=== PATIENT | male | born 1970 | race Caucasian/White ===

== ENCOUNTER 2019-02-10 01:27 | Outpatient (CLI) | payer BC, SELFPAY ==
--- NOTE | 2019-02-10 10:33 | DI.MRI_ITS ---
EXAM: MR CERVICAL SPINE WO CLINICAL HISTORY: CERVICAL RADICULOPATHY, 2 MO PROGRESSIVE NECK AND ARM PAIN W/ SIGNS OF CERVICAL IM PINGEMENT TECHNIQUE: Multiplanar multisequence MRI was performed. The exam is somewhat limited by patient mot ion. COMPARISON: No exams were available for comparison FINDINGS: The C2-3 through C4-5 levels are unremarkable. At C6, there is moderate loss of height. There are end plate osteophytes projecting circumferentially, which is slightly eccentric toward the left. There is effacement of the CSF space and a question of neural foraminal encroachment. At C 6-7, there are sma ll endplate osteophytes. There is a large, broad-based disc herniation which is eccentric toward the right and appears to enter the right neural foramen. There is impingement on the anterior aspect of t he cervical cord. The C7-T1 and T1-2 levels are unremarkable. The cord signal and marrow signal appea r normal. IMPRESSION: Large right-sided disc herniation at C6 appears to impinge on the cord and enters the neural foramen. Mild central canal stenosis is seen at C 5-6 secondary to disc osteophytes.
== END 2019-02-10 01:47 ==
PROVIDERS: PCP Family Medicine; Visit Provider Family Medicine
DX: M54.2 Cervicalgia (principal); M79.603 Pain in arm, unspecified; M50.123 Cervical disc disorder at C6-C7 level with radiculopathy; M50.223 Other cervical disc displacement at C6-C7 level
CPT/HCPCS: 72141

== ENCOUNTER 2019-04-29 07:44 | Outpatient (CLI) | payer BC, SELFPAY ==
[2019-04-29 07:51] VITALS: BP 104/70; PULSE 62; RESP 14; TEMP 35.1; O2SAT 96
--- NOTE | 2019-04-29 07:57 | PDOC.PAIN ---
Pain Clinic Procedure Note Procedure Note Procedure Note: Cervical Epidural Steroid Injection MILTON CHU has been referred to the [facility] for interlaminar cervical epidural steroid injection. Pre-operative diagnosis: cervical radiculopathy Post-operative diagnosis: same as above Patient was interviewed and the medical record reviewed. There were no medical, pharmacologic, radiographic or other structural contraindications to attempting fluoroscopically guided epidural steroid injection. Risks and expected side effects as well as potential benefit of the procedure were reviewed and voiced concerns addressed. The printed consent form was signed and witnessed. Standard time-out procedure was performed. The patient was placed in the prone position on the fluoroscopy table and automated blood pressure cuff and pulse oximeter applied. The skin entry point for entering the epidural space by a midline C7-T1 interlaminar approach was identified under fluoroscopy and marked. Following thorough Chlorhexadine preparation of the skin and draping and 1% lidocaine infiltration of the skin entry point and subcutaneous tissues, an 18 gauge Tuohy needle was placed under fluoroscopic guidance and with loss of resistance technique into the epidural space. Upon needle placement and loss of resistance there were no paresthesiae or return of blood or CSF through the needle. 1ml of Omnipaque 240 were injected with clear epidural spread in the A/P, oblique views. 15mg of preservative-free Dexamethasone with 1ml sterile normal saline were injected through the needle with no unusual discomfort expressed. 1cc of preservative free normal saline was followed to flush the steroid out of the needle. The needle was removed without difficulty. A bandage was placed. Vital signs were stable throughout the procedure and were as recorded in the docflowsheet by the nursing staff. If given, dosages of intravenous drugs for anxiolysis and analgesia were documented in MAR. Follow up plans and appointments were discussed. Post procedure instruction was given as documented in nursing documentation and having met discharge criteria and was discharged from the [facility]. COMMENTS: patient received 1mg of IV versed. I personally performed the entire procedure. Aspen Keyes MD Pain Management CC: Ramiro Francisco
[2019-04-29] MEDS: Lactated Ringers 1,000 ML 80 ML IV (08:06)
[2019-04-29] MEDS: Midazolam 2 MG/2 ML VIAL IVP (08:11)
[2019-04-29 08:20] VITALS: BP 107/82; PULSE 52; RESP 15; O2SAT 99
[2019-04-29] MEDS: Omnipaque 240 MG/ML 50 ML BTL IJ (08:20)
[2019-04-29] MEDS: Dexamethasone Sod. Phos./Pres-Free 10 MG/ML VIAL IJ (08:21)
--- NOTE | 2019-04-29 09:17 | DI.RAD_ITS ---
EXAM: XR PAIN CLINIC CERVICAL SP 2V CLINICAL HISTORY: Dx: Cervical Radiculopathy TECHNIQUE: 2D and realtime digital imaging was performed. Fluoroscopy was provided in the OR COMPARISON: No exams were available for comparison FINDINGS: C-arm fluoroscopy was utilized by Dr. Keyes during reported epidural steroid injection. Hard copy shows epidural injection just to the right of midline at what appears to be the C7-T1 level Fluoro time: 18.2 sec, fluoro dose 1.49 mGy
== END 2019-04-29 08:04 ==
PROVIDERS: PCP Family Medicine; Visit Provider Internal Medicine
DX: M54.12 Radiculopathy, cervical region (principal)
CPT/HCPCS: 62321; 72040; J2250; Q9967

== ENCOUNTER 2021-04-29 21:35 | Outpatient (REF) | payer BC, SELFPAY ==
[2021-04-29 20:08] LABS: Hemoglobin A1C 5.7 % (<5.7)
[2021-04-29 20:29] LABS: Calculated LDL 123 mg/dL (<100); Cholesterol 204 mg/dL (<200); HDL Cholesterol 49 mg/dL (40-60); Triglyceride 160 mg/dL (<150)
[2021-05-02 10:06] LABS: Hepatitis B Surface Ag Negative (Negative)
[2021-05-02 10:47] LABS: Hepatitis C Ab w Rflx HCV PCR Negative (Negative)
== END 2021-04-29 21:36 | disposition home or self-care (01) ==
LOC: NCHCN 21:35
PROVIDERS: PCP Family Medicine; Visit Provider Family Medicine
DX: Z00.00 Encounter for general adult medical examination without abnormal findings (principal)
CPT/HCPCS: 80061; 86803; 87340; 83036

== ENCOUNTER 2021-12-04 08:59 | Emergency (ER) | payer BC, SELFPAY ==
[2021-12-04 09:02] VITALS: BP 129/86; PULSE 60; RESP 16; TEMP 36.9; O2SAT 96
[2021-12-04] MEDS: Ketorolac 60 MG/2 ML VIAL IM (09:55)
--- NOTE | 2021-12-04 10:07 | W.ED.GENAD ---
Discharge Plan Disposition Patient Disposition: HOME Condition: Stable Discharge Details Clinical Impression: Cervical radicular pain Primary Care Provider: Ramiro Francisco ED Provider: Raimundo Belcher Home Meds and New Rx's Prescriptions: New cyclobenzaprine 5 mg tablet 5 mg PO QHS PRNQty: 10 0RF Continued acetaminophen 500 mg Tablet 1,000 mg PO TID PRN PRN albuterol sulfate [Proventil HFA] 90 mcg/actuation Hfa Aerosol Inhaler 2 puff INHALATION Q4H PRN Advair HFA 230-21 mcg/actuation HFA aerosol inhaler 2 puff inhalation BID omeprazole 20 mg capsule,delayed release(DR/EC) 1 cap PO QAM Label Comments: TAKE 1 CAPSULE BY MOUTH 2 TIMES DAILY ON EMPTY STOMACH 30 MINUTES BEFORE MEAL. Discharge Instructions Instructions: Neck Pain (ED) Additional Instructions: Flexeril as directed, this medication may cause drowsiness. Cool and/or warm compresses every 2 hours for 20 minutes. Gentle stretching as tolerated. You may trial [id number] Naprosyn as directed. Please watch for new or worsening symptoms and return to the ER for any concerns. I do recommend contacting both your PCP and the pain clinic tomorrow to make them aware of your ER visit and need for outpatient reevaluation. Medical Decision Making 51-year-old gentleman, [id number], presents for acute on chronic right sided cervical radiculopathy. Patient denies recent illness or trauma. Reports cervical injection 2 years ago began to wear off over the past couple of months and cannot see his pain clinic for 1 to 2 months. Clinically he appears well, nontoxic, neurologically intact. No midline point tenderness. No fever. I see no clear indication for laboratory values or advanced imaging at this time. Discussed treatment options. He is agreeable to IM Toradol and a muscle relaxer. Patient was observed in the ER for over 30 minutes after the Toradol was given, no adverse reaction. We discussed the importance of outpatient follow-up through his PCP and for pain clinic, currently recommend contacting post tomorrow to set up prompt outpatient reevaluation Standard discharge and return precautions were provided. Patient understands, is agreeable to this plan, and has no additional questions or concerns upon discharge. This documentation was generated using [employer] system, please disregard any oddities of phrase or misspellings. Medical Records Medical records reviewed: Yes I reviewed the patient's medical records. HPI General Mode of arrival: ambulatory. Date/Time Provider Initiated Documentation: 12/04/21 09:00. Limitations to Documentation: no limitations. Information obtained by: patient and family. HPI Narrative: This is a 51-year-old gentleman, past medical history that includes mild asthma, cervical radiculopathy, GERD, presenting to the ER reporting acute on chronic neck and shoulder pain. Patient states that he had a neck injection nearly 2 years ago which she responded very well to but he states over the past couple of months that is feeling as though it is wearing off. Patient denies recent illness or trauma. He has been taking aawp-aom-uuattyr Tylenol with little relief. He is unable to be seen by his pain clinic for another 2 months. Reports pain is worse with movement Related Data Home Medications Medication Instructions Recorded Confirmed acetaminophen 500 mg tablet 1,000 mg PO TID PRN PRN 02/28/19 12/04/21 albuterol sulfate 90 mcg/actuation 2 puff inhalation Q4H PRN 02/28/19 12/04/21 aerosol inhaler (Proventil HFA) fluticasone propionate 230 2 puff inhalation BID 06/16/21 12/04/21 mcg-salmeterol 21 mcg/actuation HFA inhaler (Advair HFA) cyclobenzaprine 5 mg tablet 5 mg PO QHS PRN #10 tabs 12/04/21 omeprazole 20 mg capsule,delayed 1 cap PO QAM 12/04/21 12/04/21 release Previous Rx's Medication Instructions Recorded cyclobenzaprine 5 mg tablet 5 mg PO QHS PRN #10 tabs 12/04/21 Allergies Allergy/AdvReac Type Severity Reaction Status Date / Time aspirin Allergy Severe Unverified 12/04/21 09:06 ibuprofen [From Advil] Allergy Severe Unverified 12/04/21 09:06 prednisone AdvReac Intermediate moodiness Unverified 12/04/21 09:06 General Stated Complaint: Orthopedic JOHNNA: 4 Review of Systems Constitutional Constitutional: Denies fever(s), Denies headache(s) and Denies weakness ENT Ears, Nose, Mouth, and Throat: Denies headache(s) and Reports neck pain Cardiovascular Cardiovascular: Denies chest pain and Denies dyspnea Respiratory Respiratory: Denies dyspnea Musculoskeletal Musculoskeletal: Reports neck pain, Denies numbness, Denies stiffness and Denies tingling Integumentary/Breasts Skin/Breast: Denies erythema Neurologic Neurologic: Denies headache(s), Denies numbness, Denies tingling and Denies weakness PFSH All Active Problems Cervical radicular pain (Acute) Medical History Abdominal pain Asthma Basal cell carcinoma Cervical radiculopathy Degenerative disc disease Elevated transaminase level GERD (gastroesophageal reflux disease) Hernia Right shoulder pain Surgical History H/O hernia repair History of surgical removal of lesion Social History Smoking/Tobacco Use Status: Never Smoking risk assessment performed?: Yes Alcohol Intake: former Drug use: Never Substance use type: does not use Household members: spouse and children Housing: house Number of Children: 3 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 What is your relationship status?: Panel score (0-1 are the most socially isolated patients): 1 What type of physical activity do you participate in: additional Details: active line of work Do you feel safe at home: Yes Do you feel safe in your relationship?: Yes Exam Const General: cooperative, healthy appearing, comfortable and no acute distress Orientation: alert and awake HENMT Head: normal to inspection, normocephalic and atraumatic Eyes General: appearance normal, both eyes and all related structures Conjunctivae: conjunctivae normal Neck Neck: normal visual inspection, full ROM, trachea midline, supple and tender (Right paravertebral and trapezius) Resp Effort & Inspection: normal respiratory effort and able to speak in complete sentences Skin General skin exam: no rashes or lesions noted Neuro General: patient alert, patient awake, moves all extremities and no focal motor deficits Cognition: normal cognition Speech: speech normal Gait: normal gait Motor: muscle tone normal throughout, strength 5/5 throughout, no movement abnormalities noted and no fasciculations Sensory Exam: no sensory deficits noted Extrem General: normal to inspection, full ROM and capillary refill normal Other: Diffuse mild right shoulder discomfort to palpation. Neuro, vascular, tendon intact Psych Appearance: grossly normal Mental Status: mental status grossly normal Course Vital Signs Vital signs: Vital Signs Temperature 36.9 C 12/04/21 09:02 Pulse 60 12/04/21 09:02 Respiratory Rate 16 12/04/21 09:02 Blood Pressure 129/86 12/04/21 09:02 Pulse Oximetry 96 12/04/21 09:02 Temperature 36.9 C 12/04/21 09:02 Temperature Source Temporal Artery Scan 12/04/21 09:02 Pulse 60 12/04/21 09:02 Respiratory Rate 16 12/04/21 09:02 Respiratory Effort Non-Labored 12/04/21 09:05 Blood Pressure 129/86 12/04/21 09:02 Blood Pressure Position Sitting 12/04/21 09:02 Pulse Oximetry 96 12/04/21 09:02 Oxygen Delivery Method Room Air 12/04/21 09:02 Oxygen Flow Rate 0 12/04/21 09:02 Pain Level 4 12/04/21 09:55
== END 2021-12-04 10:33 | disposition home or self-care (01) ==
PROVIDERS: Emergency Provider Physician Assistant; PCP Family Medicine
DX: M54.12 Radiculopathy, cervical region (principal)
CPT/HCPCS: 96372; 99284; J1885

== ENCOUNTER 2022-02-02 08:33 | Outpatient (CLI) | payer BC, SELFPAY ==
--- NOTE | 2022-02-02 06:00 | DI.RAD_ITS ---
Exam(s) XR PAIN CLINIC CERVICAL SP 2V EXAM: XR PAIN CLINIC CERVICAL SP 2V CLINICAL HISTORY: Dx: Cervical Radiculopathy TECHNIQUE: 2D and realtime digital imaging was performed. CONTRAST MATERIAL: Refer to procedure report. COMPARISON: No exams were available for comparison FINDINGS: Fluoroscopy was provided for Dr. Zhou during the performance of a cervical epidural steroid injectio n. Please refer to the procedure report for complete details. Ka,r=1.58 mGy IMPRESSION:
[2022-02-02 08:44] VITALS: BP 129/86; PULSE 67; RESP 20; TEMP 36.9; O2SAT 99
--- NOTE | 2022-02-02 09:17 | PDOC.PAIN ---
Date of service: 02/02/22 Time of Service: 09:20 Pain Clinic Procedure Note Procedure Note Procedure Note: Cervical Epidural Steroid Injection Chico Cartagena has been referred to the [facility] for cervical epidural steroid injection. COMMENTS: He was previously evaluated. Pre-procedure pain VAS was 6/10. Dx: Cervical radiculopathy Osiel was interviewed and the medical record reviewed. There were no medical, pharmacologic, radiographic or other structural contraindications to attempting fluoroscopically guided epidural steroid injection. Risks and expected side effects as well as potential benefit of the procedure were reviewed with Osiel , and Osiel voiced concerns addressed. The printed consent form was signed and witnessed. Standard time-out procedure was performed. The patient was placed in the prone position on the fluoroscopy table and automated blood pressure cuff and pulse oximeter applied. The skin entry point for entering the epidural space by a midline C7-T1 interlaminar approach was identified under fluoroscopy and marked. Following thorough Chlorhexadine preparation of the skin and draping and 1% lidocaine infiltration of the skin entry point and subcutaneous tissues, an 18 gauge Tuohy needle was placed under fluoroscopic guidance and with loss of resistance technique into the C7-T1 epidural space. Upon needle placement and loss of resistance there were no paresthesiae or return of blood or CSF through the needle. 1 cc of Omnipaque 240 was injected with clear epidural spread in the A/P, lateral and oblique views. 10 mg of preservative free Dexomethasone was injected with no unusual discomfort expressed by Osiel. This was flushed with 1 cc of normal saline. Osiel 's vital signs were stable throughout the procedure and were as recorded in the docflowsheet by the nursing staff. Follow up plans and appointments were discussed with the Osiel. Post procedure instruction was given as documented in nursing documentation and having met discharge criteria, Osiel was discharged from the Pain Management Center. COMMENTS: If this procedure is helpful, it can be completed up to 3 times per 12 months. Post procedure pain VAS = 1/10 Omar Zhou DO, MPH [facility]-Pain Management [facility] for [facility] CC: Ramiro Francisco
[2022-02-02] MEDS: Omnipaque 240 MG/ML 50 ML BTL IJ (09:19)
[2022-02-02] MEDS: Dexamethasone Sod. Phos./Pres-Free 10 MG/ML VIAL IJ (09:19)
[2022-02-02 09:22] VITALS: BP 127/79; PULSE 64; RESP 21; O2SAT 96
== END 2022-02-02 08:34 | disposition home or self-care (01) ==
LOC: PC 08:34
PROVIDERS: PCP Family Medicine; Visit Provider Preventive Medicine Occupational Medicine
DX: M54.12 Radiculopathy, cervical region (principal)
CPT/HCPCS: 62321; 72040; Q9967

== ENCOUNTER 2022-03-24 08:57 | Day surgery (SDC) | payer BC, SELFPAY ==
[2022-03-24 09:05] VITALS: BP 115/90; PULSE 81; RESP 16; TEMP 36.2; O2SAT 96
[2022-03-24] MEDS: Lactated Ringers 1,000 ML 80 ML IV (09:36)
--- NOTE | 2022-03-24 10:43 | W.ANESPRE ---
General Info Date of Service Date Performed: 03/24/22 Height: 6 ft Weight: 81.3 kg Body Mass Index (BMI): 24.3 Surgical Procedure: Operation Date: 03/24/22 11:50 Proposed Procedure Side Surgeon rhona García MD Meds Allergies and Home Medications Allergies Allergy/AdvReac Type Severity Reaction Status Date / Time aspirin Allergy Severe Unverified 03/24/22 09:15 ibuprofen [From Advil] Allergy Severe Unverified 03/24/22 09:15 prednisone AdvReac Intermediate moodiness Unverified 03/24/22 09:15 Home Medication Medication Instructions Recorded acetaminophen 500 mg tablet 1,000 mg PO TID PRN PRN 02/28/19 albuterol sulfate 90 mcg/actuation 2 puff inhalation Q4H PRN 02/28/19 aerosol inhaler (Proventil HFA) cyclobenzaprine 5 mg tablet 5 mg PO QHS PRN #10 tabs 12/04/21 omeprazole 20 mg capsule,delayed 1 cap PO QAM 12/04/21 release naproxen 500 mg tablet,delayed 500 mg PO BID 12/14/21 release (EC-Naproxen) bisacodyl 5 mg tablet,delayed 5 mg PO ONCE #4 tabs 03/09/22 release (Dulcolax (bisacodyl)) polyethylene glycol 3350 17 17 g PO ONCE #238 grams 03/09/22 gram/dose oral powder Current Visit Medications: Current Medications Generic Name Dose Route Start Last Admin Trade Name Freq PRN Reason Stop Dose Admin Ringer's Solution 1,000 mls @ 80 mls/hr 03/24/22 06:00 03/24/22 09:36 IV 04/22/22 23:59 80 mls/hr INFUSION MAAME Administration IV Miscellaneous Supplies 1 each 03/24/22 06:00 Iv Access IV 04/22/22 23:59 DIRECTED MAAME Sodium Chloride 0 ml 03/24/22 06:00 Normal Saline Flush 10 Ml Syr IV 04/22/22 23:59 PRN PRN Sodium Chloride 0 ml 03/24/22 06:00 Normal Saline 10 Ml Vial IJ 04/22/22 23:59 DIRECTED PRN Sterile Water 0 ml 03/24/22 06:00 Water,Injection,Sterile 10 Ml Vial IJ 04/22/22 23:59 DIRECTED PRN PFSH Active Problems Active Problems: Problem Status Onset Code Cervical radiculitis M54.12 Screening for colon cancer Z12.11 Medical History Medical History Abdominal pain Asthma Basal cell carcinoma Cervical radiculopathy Degenerative disc disease Elevated transaminase level Eosinophilic esophagitis GERD (gastroesophageal reflux disease) Hernia Right shoulder pain Surgical History Surgical History H/O hernia repair History of esophagogastroduodenoscopy (EGD) summer 2021; [facility]; tear in esophagus; prior scarring History of surgical removal of lesion Tobacco Smoking/Tobacco Use Status: Never Alcohol Alcohol Intake: former Substance Use Substance use: Never Substance use type: does not use Vital Signs and Lab Results Vital Signs Most Recent Vital Signs in EMR: Most Recent Vital Signs Temp Pulse Resp BP Pulse Ox 36.2 C L 81 16 115/90 96 03/24/22 09:05 03/24/22 09:05 03/24/22 09:05 03/24/22 09:05 03/24/22 09:05 Lab Results Blood Type / Crossmatch: No Data to Display Complete Blood Count: No Data to Display Complete Metabolic Panel: No Data to Display Liver Function Panel: No Data to Display Coagulation Panel: No Data to Display Cardiac Panel: No Data to Display Arterial Blood Gas: No Data to Display Venous Blood Gas: No Data to Display Pancreas Panel: No Data to Display Thyroid Panel: No Data to Display Infectious Disease: No Data to Display Blood Cultures: No Data to Display Toxicology Panel: No Data to Display Anesthesia Assessment and Plan Anesthesia History Personal History: No History of Anesthesia Complications Family History: No Family History of Anesthesia Complications Exercise Tolerance Exercise Tolerance: Metabolic Equivalents>4 Pertinent Negatives Pertinent Negatives: No Symptoms of GERD, No Major Cardiovascular Symptoms or Complaints and No Major Pulmonary Symptoms or Complaints Cardiac & Pulmonary Exam Cardiac Exam: Normal S1/S2 Heart Sounds Pulmonary Exam: Clear Bilateral Breath Sounds Implantable Cardiac Device Does patient have a Pacemaker or an ICD?: No Airway Exam Known Difficult Airway: No Mallampati Class: 1 Mouth Opening: Normal (> 3cm) Thyromental Distance: Greater than 3 cm Neck Range of Motion: Full ROM Neck Circumference: Normal Teeth Condition: Normal Dentition ASA Classification ASA Score: ASA 2 Emergency Case?: No NPO Status NPO Status: NPO Clears >2 hours, Solids >8 hours Anesthesia Plan Resuscitation Status: Full Code Anesthesia Technique: General Anesthesia Airway Planned: Natural Airway Monitors Used: Standard Monitors
[2022-03-24 10:45] VITALS: BMI 24.3
--- NOTE | 2022-03-24 11:10 | STOM_PTH ---
PATIENT: Chico Cartagena LOC: [facility] U#:[id number] AGE/SX: 51/M ROOM: RE03/24/[address]: Main García : 1970 BED: DIS: 03/24/2022 SPEC #: [id number] RECD: 03/24/22 12:46 STATUS: GLORY RE #: [id number] CATHERINE: 03/24/22 11:[address]: Main García DEPT: Surgical Specimen RECD BY: Gavi Ny ENTERED: 03/24/22 12:47 SP TYPE: STOMACH OTHR DR: Ramiro Francisco Tissues: 1 - STOMACH BIOPSY 2 - STOMACH BIOPSY 3 - ESOPHAGUS BIOPSY 4 - ESOPHAGUS BIOPSY 5 - ESOPHAGUS BIOPSY Procedures: GROSS AND MICRO LEVEL 4 Comments: [id number]
--- NOTE | 2022-03-24 11:33 | ENDO_ITS ---
Date of service: 03/24/22 Time of Service: 11:30 Endoscopy Report PROCEDURE DESCRIPTION: Procedures performed: 1.? Esophagogastroduodenoscopy with cold forceps biopsies 2. Snare polypectomy Preoperative diagnosis: GERD with esophagitis, dysphagia Postoperative diagnosis: Gastric Polyps, Type III paraesophageal hernia Surgeon: Georges García Anesthesia: Padmini Indication for procedure: 51 yo man with no risk factors for GERD who has history of GERD for a number of years untreated. Occasional dysphagia to solids over last few years including a food bolus getting stuck a number of months ago. Unsure of any specific findings from EGD done at outside hospital and just r eports being put on PPI since then with some relief. Findings: - D3, D2 and D1 all normal. - Patent pylorus - No visible antrum inflammation - biopsies taken to rule out incidental H. pylori - Stomach body and fundus have benign-appearing polyps. One was removed with snare technique to confirm benign histology. - Retroflexion showed a moderate?size type III paraesophageal hernia(~1-3cm). T his is creating a valve-like effect at the level of the LES due to the angulation being caused. - Distal esophagus above the GEJ does not look visibly inflamed. I took biopsies in the distal, mid and proximal esophagus separately to assess for reflux inflammation/eosinophilic esophagitis. - Cords and visualized waylon and hypopharynx normal. Surveillance/follow-up recommendations: Paraesophageal hernia repair should be considered since this is the underlying reason he is having GERD and if performed, patient will no longer need to take chronic antiacid medication. Whether the acid reflux is causing eosinophilic esophagitis concurrently is debatable but could be the cause of that as well. Complications: None Blood loss: Minimal Procedure in detail: Written consent was obtained from the patient who was in agreement with the risks, benefits and indications of the procedure.? We went to the endoscopy suite and laid the patient in left lateral decubitus position.? Anesthesia was administered which was tolerated well.? A timeout was performed and when we are all in agreement we began the procedure. A well?lubricated endoscope was advanced without difficulty down the esophagus, into the stomach, through a patent pylorus and into the duodenum.? It was then slowly pulled back with findings noted above. The scope was then removed and the patient tolerated the procedure well and was then turned for the colonoscopy portion of the procedure (see separate procedure note).
--- NOTE | 2022-03-24 11:33 | W.COLOREPORT ---
Date of service: 03/24/22 Time of Service: 11:33 Colonoscopy Report Procedure Description: Procedures performed: 1. Colonoscopy Preoperative diagnosis: Screening colonoscopy Postoperative diagnosis: Normal colon, Normal rectum Surgeon: Georges García Anesthesia: Padmini Indication for procedure: 51 yo man w/ no symptoms, no family history of significance (possibly an isolated grandparent) and no prior colonoscopy Findings: No polyps.? Normal colon.? Normal rectum Surveillance/follow-up recommendations: 10 years Complications: None Blood loss: Minimal Procedure in detail: Written consent was obtained from the patient who was in agreement with the risks, benefits and indications of the procedure.? We finished an EGD (see separate procedure note) and turned patient for colonoscopy. Anesthesia was continued. Digital rectal exam and visual examination was performed and within normal limits.? A well?lubricated colonoscope was advanced without difficulty all the way to the cecum identified by the ileocecal valve, and triangular folds and appendiceal orifice.? It was then slowly withdrawn.?? Retroflexion was performed in the rectum.? The findings/interventions are noted above. The scope was then removed and the patient tolerated the procedure well and was then taken back to the PACU in hemodynamically stable condition.
[2022-03-24 11:39] VITALS: BP 116/84; PULSE 83; RESP 16; TEMP 35.9; O2SAT 96
--- NOTE | 2022-03-24 11:47 | W.ANESPOSTOP ---
Postoperative Evaluation Date, Time and Location Date Performed: 03/24/22 Time Performed: 11:47 Patient Location: Day Surgery Unit Vital Signs Most Recent Imported Vital Signs: Most Recent Vital Signs Temp Pulse Resp BP Pulse Ox 35.9 C L 83 16 116/84 96 03/24/22 11:39 03/24/22 11:39 03/24/22 11:39 03/24/22 11:39 03/24/22 11:39 Pain Score Most Recent Pain Score: Most Recent Pain Score Pain Level 0 03/24/22 11:39 Assessment Mental Status: Awake (Alert & Oriented to Patient Baseline) Airway and Respiratory Function: Patent airway with normal (patient baseline) respiratory exam Cardiovascular Function: Hemodynamically Stable Hydration Status: Adequately Hydrated Nausea & Vomiting: No Nausea or Vomiting Pain: Pt. Denies Any Pain Peripheral Nerve Block: Patient did not receive a nerve block
[2022-03-24 12:26] VITALS: BP 128/99; PULSE 68; RESP 16; TEMP 36.1; O2SAT 96
== END 2022-03-24 12:42 | disposition home or self-care (01) ==
PROVIDERS: PCP Family Medicine; Visit Provider Student in an Organized Health Care Education/Training Program
PROC: (CPT 43251; principal; 2022-03-24 11:45)
DX: Z12.11 Encounter for screening for malignant neoplasm of colon (principal); K21.00 Gastro-esophageal reflux disease with esophagitis, without bleeding; K44.9 Diaphragmatic hernia without obstruction or gangrene; K31.7 Polyp of stomach and duodenum; K22.89 Other specified disease of esophagus
CPT/HCPCS: 43251; 45378; 43239; 88305

== ENCOUNTER 2022-08-09 00:33 | Outpatient (CLI) | payer BC, SELFPAY ==
--- NOTE | 2022-08-09 09:34 | DI.RAD_ITS ---
Exam(s) RF BARIUM SWALLOW EXAM: RF BARIUM SWALLOW CLINICAL HISTORY: GASTROESOPHAGEAL REFLUX DISEASE, HIATAL HERNIA, K21.00, ESOPHAGITIS TECHNIQUE: 2D and realtime digital imaging was performed. CONTRAST MATERIAL: Oral barium contrast was administered. COMPARISON: No exams were available for comparison FINDINGS: CHEST X-RAY: The heart and pulmonary vasculature are within normal limits. The lungs are clear. No pl eural effusion or pneumothorax is present. The bones are within normal limits for the patient's age. There are mild degenerative changes seen in the lower cervical spine. ESOPHAGRAM: The esophagus is patent with no evidence for erosions, fold thickening, strictures, or ma sses. With regards to the motility, there is a normal primary stripping wave. No tertiary contraction s were noted. There is a small hiatal hernia. No gastroesophageal reflux was seen during the examina tion. IMPRESSION: 1. Small hiatal hernia. 2. No findings of an ulcer, stricture or mass. RADIATION DOSE DELIVERED: Ka,r=23.7 mGy
[2022-08-09] MEDS: Barium Sulfate 60% W/V 355 ML BTL PO (09:36)
[2022-08-09] MEDS: Barium Sulfate 98% W/W 140 ML BTL PO (09:36)
[2022-08-09] MEDS: Simethicone/Sod Bicarb/Cit Ac, 4 gram PACKET 1 PACKET PO (09:37)
== END 2022-08-09 00:53 ==
PROVIDERS: PCP Family Medicine; Visit Provider Student in an Organized Health Care Education/Training Program
DX: K21.00 Gastro-esophageal reflux disease with esophagitis, without bleeding (principal)
CPT/HCPCS: 74221; J3490

== ENCOUNTER → 2022-11-15 00:59 | Outpatient (CLI) | payer BC, SELFPAY ==
--- NOTE | 2022-11-15 06:45 | DI.MRI_ITS ---
Exam(s) MR CERVICAL SPINE WO EXAM: MR CERVICAL SPINE WO CLINICAL HISTORY: cervical radiculopathy,m54.12 TECHNIQUE: Multiplanar multisequence MRI of the cervical spine was performed without intravenous con trast. COMPARISON: MR MR CERVICAL SPINE WO from 02/10/2019 FINDINGS: BONES: Vertebral body heights are maintained. Alignment is normal. Bone marrow signal intensity is wi thin normal limits. CERVICAL CORD: Craniovertebral junction is unremarkable. The cervical cord is normal size and signal intensity. SOFT TISSUES: Unremarkable. C2-3: No disc herniation or bulge is identified. No evidence of neural foraminal narrowing. No signi ficant central canal stenosis C3-4: No disc herniation or bulge is identified. No evidence of neural foraminal narrowing. No signif icant central canal stenosis C4-5: No disc herniation or bulge is identified. No evidence of neural foraminal narrowing. No signif icant central canal stenosis C5-6: Mild loss disc height. Circumferentially projecting osteophytes causing left neural foraminal narrowing, similar to prior.No significant central canal stenosis C6-7: Moderate loss of disc height and broad-based disc osteophytes. Mild left neural foraminal [place] rowing. No significant central canal stenosis. The disc herniation seen on the prior exam is not id entified on the current study. C7-T1: No disc herniation or bulge is identified. No evidence of neural foraminal narrowing. No signi ficant central canal stenosis IMPRESSION: Previously noted row right-sided disc herniation at C6-7 is not present on the current exam. There i s left neural foraminal narrowing at C5-6 and C6-7 secondary to disc osteophyte encroachment. DATA REPOSITORY:
== END ==
PROVIDERS: PCP Family Medicine; Visit Provider Preventive Medicine Occupational Medicine
DX: M54.12 Radiculopathy, cervical region (principal); M99.31 Osseous stenosis of neural canal of cervical region
CPT/HCPCS: 72141

== ENCOUNTER 2023-08-30 10:11 | Outpatient (CLI) | payer BC, SELFPAY ==
--- NOTE | 2023-08-30 06:00 | DI.RAD_ITS ---
Exam(s) XR PAIN CLINIC CERVICAL SP 2V EXAM: XR PAIN CLINIC CERVICAL SP 2V CLINICAL HISTORY: DX: Cervical radiculopathy. TECHNIQUE: Fluoroscopy was provided for the referring physician for guidance with performing pain cl inic injection procedure. COMPARISON: No exams were available for comparison FINDINGS: Please see procedure note for details. Fluoro time: 46.5 seconds RADIATION DOSE DELIVERED: Ka,r=8.68 mGy
[2023-08-30 10:19] VITALS: BP 117/85; PULSE 71; RESP 20; TEMP 36.6; O2SAT 98
--- NOTE | 2023-08-30 10:47 | PDOC.PAIN ---
Date of service: 08/30/23 Time of Service: 10:47 Pain Managment Procedure Note Procedure Note Procedure Note: Procedure Note Cervical Interlaminar Epidural Steroid Injection Date of Service: August 30, 2023 Patient:? Chico Cartagena? Provider:? Merlene Zhou DO, MPH [place] has been referred to the [facility] for cervical epidural steroid injection.? Pre-operative diagnosis: Cervical Radiculopathy Post-operative diagnosis: Same Pre-procedure pain: VAS= 3/10 Comments: He last had this procedure on 02/02/22 and had >12 months of >50% pain relief. Chico was interviewed and the medical record was reviewed.? There were no medical, pharmacologic, radiographic or other structural contraindications to attempting fluoroscopically guided cervical interlaminar epidural steroid injection.? Risks, potential side effects, indications, and potential benefits of the procedure were reviewed with Chico.? Questions and concerns were addressed.? After it was clear that the patient was fully informed about the procedure, the printed consent form was signed by the patient and myself.? Chico was placed in the prone position on the fluoroscopy table and automated blood pressure cuff as well as pulse oximeter was applied. A standard time-out procedure was performed. The skin entry point for entering the epidural space by a midline C7-T1 interlaminar approach was identified under fluoroscopy and marked.? The skin entry point was thoroughly cleaned with Chlorhexadine preparation and the skin was draped.? Next a mixture of 2 mls of 1% lidocaine was infiltrated into the area of the planned skin entry point and underlying subcutaneous tissues.? Next an 18 gauge Tuohy needle was placed under fluoroscopic guidance and with loss of resistance technique into the epidural space utilizing multiple AP and 55 degree contralateral fluoroscopic views.? Upon correct needle placement and loss of resistance, there were no paresthesia or return of blood or CSF through the needle. Next 1 mls of preservative-free Omnipaque 240 was injected with clear epidural spread in the A/P and oblique views. Next, a solution of 15 mg of preservative-free Dexamethasone was injected. This was followed with 1ml of preservative-free normal saline. No unusual discomfort was expressed by Chico. The needle was withdrawn without difficulty. (49 mls of Omnipaque and 5 mg of Dexamethasone was wasted) Chico was observed and was without hemodynamic, neurologic, or allergic reactions.? Fluoroscopic images were digitally archived. Chico's vital signs were stable throughout the procedure and were as recorded in the doc flowsheet by the nursing staff.? If given, dosages of intravenous drugs for anxiolysis and analgesia were documented in MAR. Follow up plans and appointments were discussed with Chico.? Post procedure instruction was given as documented in nursing documentation and having met discharge criteria, [facility]. A retrospective review of interlaminar cervical ESIs found that approximately two-thirds of patients with symptomatic cervical radiculopathy from disc herniation were able to avoid surgery for up to 1 year with treatment. Success rate was improved with earlier injection (< 100 days from diagnosis). Cyndy EL, Soha V, Joceline L, Ninfa AN, Da RITTER. Cervical epidural steroid injections for symptomatic disc herniations. J Spinal Disord Tech. 2006 August;19(3):183-6. ? COMMENTS: No apparent complications. Post-procedure pain: VAS= 1/10. Chico to contact [place] [facility] as needed. If at least 50% improvement in pain and/or function for at least 3 months is achieved, this procedure can be repeated. I personally completed the entire procedure. MERLENE ZHOU DO, MPH ABPMR-subspecialty board certification in Pain Medicine [facility] [facility]
[2023-08-30 10:50] VITALS: BP 120/88; PULSE 52; RESP 14; O2SAT 97
[2023-08-30] MEDS: Omnipaque 240 MG/ML 50 ML BTL IJ (10:51)
[2023-08-30] MEDS: Dexamethasone Sod. Phos./Pres-Free 10 MG/ML VIAL IJ (10:51)
[2023-08-30] MEDS: Epidural Tray 1 EACH MC (10:51)
== END 2023-08-30 10:12 | disposition home or self-care (01) ==
LOC: PC 10:12
PROVIDERS: PCP Family Medicine; Visit Provider Preventive Medicine Occupational Medicine
DX: M54.12 Radiculopathy, cervical region (principal)
CPT/HCPCS: 62321; 72040; J1100; Q9967

== ENCOUNTER 2024-07-23 15:10 | Outpatient (REF) | payer BC, SELFPAY ==
[2024-07-23 20:31] LABS: Calculated LDL 146 mg/dL (<100); Cholesterol 219 mg/dL (<200); HDL Cholesterol 60 mg/dL (>or=40); Triglyceride 66 mg/dL (<150)
[2024-07-23 20:50] LABS: Hemoglobin A1C 5.7 % (<5.7)
== END 2024-07-23 15:11 | disposition home or self-care (01) ==
LOC: NCHCN 15:10
PROVIDERS: PCP Student in an Organized Health Care Education/Training Program; Visit Provider Student in an Organized Health Care Education/Training Program
DX: Z13.220 Encounter for screening for lipoid disorders (principal); Z13.1 Encounter for screening for diabetes mellitus
CPT/HCPCS: 80061; 83036

== ENCOUNTER 2024-12-11 14:18 | Outpatient (REF) | payer BC, SELFPAY ==
[2024-12-11 15:35] LABS: ALT 57 U/L (16-63); AST 37 U/L (15-37); Albumin 4.4 g/dL (3.4-5.0); Alkaline Phosphatase 82 U/L (46-116); Anion Gap 9.0 mmol/L (3-11); BUN 10 mg/dL (7-18); Bilirubin, Total 0.8 mg/dL (0.2-1.0); CO2 27.0 mmol/L (21.0-32.0); Calcium 9.1 mg/dL (8.5-10.1); Calculated LDL 76 mg/dL (<100); Chloride 105 mmol/L (98-107); Cholesterol 141 mg/dL (<200); Estimated GFR 103.87 (mL/min/1.73m2); Glucose 93 mg/dL (74-106); HDL Cholesterol 55 mg/dL (>or=40); Potassium 4.4 mmol/L (3.5-5.1); Sodium 141 mmol/L (136-145); Total Protein 7.1 g/dL (6.4-8.2); Triglyceride 53 mg/dL (<150)
== END 2024-12-11 14:19 | disposition home or self-care (01) ==
LOC: NCHCN 14:18
PROVIDERS: PCP Student in an Organized Health Care Education/Training Program; Visit Provider Student in an Organized Health Care Education/Training Program
DX: E78.2 Mixed hyperlipidemia (principal)
CPT/HCPCS: 80053; 80061